=== PATIENT | male | born 1945 | race Caucasian/White ===

== ENCOUNTER → 2024-04-22 15:45 | Outpatient (REF) | payer OTHER, SELFPAY | LOC: HWRCS 15:45 | PROVIDERS: ATTENDING PHYSICIAN Internal Medicine Cardiovascular Disease; FAMILY PHYSICIAN Family Medicine | DX: I44.2 Atrioventricular block, complete (principal); I45.10 Unspecified right bundle-branch block | CPT/HCPCS: 93306 ==

== ENCOUNTER 2024-04-26 06:35 | Day surgery (SDC) | payer OTHER, SELFPAY ==
[2024-04-26] VITALS (21 sets, daily range): BP systolic 83–171; BP diastolic 59–102; BMI 35.0
[2024-04-26 07:35] LABS: Glucose - Point of Care 120 mg/dl (70-99)
--- NOTE | 2024-04-26 10:08 | ITS.CL.PACE ---
Shoe Repairer - Pacemaker Implant
Pacemaker Implant
Procedure Report:
Date of Procedure: April 26, 2024.
Procedure: Pacemaker Implantation. Right upper extremity venogram.
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
Performing physician: Edmund Marcial MD, [facility].
Implants:
Pulse Generator: Medtronic; Model# W1DR01; Serial# [id number].
RA Lead: Medtronic; Model# 5076-52cm; Serial# [id number].
RV Lead: Medtronic; Model# 3830-69cm; Serial# [id number].
Technique: A time out was performed. A 10 mL upper extremity venogram demonstrated patent right axillary, cephalic, and subclavian veins. The procedure site was identified. The patient was anesthetized by the anesthesia service. Preoperative
cephazolin was administered. The patient was prepped and draped in the usual fashion. Local anesthetic was applied to the right prepectoral subcutaneous tissue. A 3 inch incision was made along the right deltopectoral groove. Dissection was carried
to the fascia. The right cephalic vein was easily isolated and proximal and distal control with 2-0 Vicryl suture. Using a micropuncture needle to access the cephalic vein under direct visualization a wire was advanced into the central circulation.
A 7 Fr introducer was placed to allow two 0.35 J wires to be advanced. The leads were introduced with hemostatic peel away introducer sheaths. The RV lead was placed using utilizing the [employer] His delivery catheter ([id number]) that was advanced to
the left bundle area as confirmed by fluoroscopy in the MALTESE and VALENCIA projections. The lead tip was advanced. PVC morphology was reviewed. When a satisfactory location was identified (W pattern observed) the lead was screwed into position with serial
turns. Septal engagement was confirmed with gentle torque applied to the guide sheath. After each series of turns (2-3) unipolar sensed morphology and impedance, and paced morphology of V1 was analyzed. The lead was further advanced until
satisfactory morphology and electrical characteristics were confirmed. The long guiding sheath was cut and removed from the RV without change in lead position, impedance, sensing, or capture. The ventricular lead was secured to the pectoralis muscle
and fascia with two 0-silk sutures. The atrial lead was placed in the right atrial appendage. 8 volt pacing from each lead did not capture the diaphragm. The atrial leads was secured to the pectoralis muscle and fascia. A subcutaneous pocket was
created with Bovie cautery. Hemostasis was excellent. The leads were appropriately attached to the device. The pocket was irrigated with antibiotic solution. The device and leads were placed in the pocket. The incision was closed in three layers
with absorbable suture. Steri-strips and a silver impregnated dressing were placed. Estimated blood loss was estimated at 15 ml. There were no complications. F Fluoroscopy time 3.8 minutes and DAP 2.35 GyCM2. The device was then interrogated after
skin closure.
Lead Analysis:
RA lead: P: 1.3 mV; Threshold: 1.75 V @ 0.4 ms; Impedance: 418 ohms.
RV lead (bipolar): R: 3.1 mV; Threshold: 1 V @ 0.4 ms; Impedance: 1102 ohms.
RV lead (unipolar): R: 5.9 mV; Threshold: 0.75 V @ 0.4 ms; Impedance: 836 ohms.
Paced QRS characteristics: V1 has qr morphology and measures 170 ms in duration, LVAT (stim to peak V5/V6) is 117/83 ms, and R peak V1 to R peak V6 is 62 ms.
Final Programming: DDDR 60-130 bpm.
Conclusion: Uncomplicated Medtronic pacemaker implant. The pacing system is MRI conditional.
Recommendation: Routine post pacemaker care.
cc: Ayan Cervantes DO and Sukhdev Rolon MD.
--- NOTE | 2024-04-26 13:26 | W.PN.UPDATE ---
Update Note
Progress Note Update
Pt seen post PPM implant. Right ACW w/aquacel dressing CDI, no ht/bleeding, non tender. Post EKG [employer] 60s. Post CXR w/stable lead position, no pneumothorax. Activity limitations reviewed w/pt, . Will hold metformin post small dye load for
venogram, ok to resume on Saturday 04/28 in AM. Incision check at [facility] arranged. Medtronic rep at bedside today for device interrogation prior to d/c. Home today after 2nd dose antibiotics and if device site remains stable.
[2024-04-26] MEDS: ANCEF 5 IV (13:56)
== END 2024-04-26 14:25 | disposition home or self-care (01) ==
LOC: CATH 06:35
PROVIDERS: ATTENDING PHYSICIAN Internal Medicine Cardiovascular Disease; FAMILY PHYSICIAN Family Medicine; OTHER PHYSICIAN Internal Medicine Cardiovascular Disease
DX: I44.2 Atrioventricular block, complete (principal); R00.1 Bradycardia, unspecified; Z79.84 Long term (current) use of oral hypoglycemic drugs; Z79.899 Other long term (current) drug therapy
CPT/HCPCS: 33208; 71045; 82962; 93005; C1769; C1785; C1887; C1892; C1898; Q9967

== ENCOUNTER → 2024-10-15 07:47 | Outpatient (REF) | payer OTHER, SELFPAY | LOC: DHSLP 07:47 | PROVIDERS: ATTENDING PHYSICIAN Family Medicine | DX: G47.33 Obstructive sleep apnea (adult) (pediatric) (principal); R09.02 Hypoxemia | CPT/HCPCS: 95806 ==